=== PATIENT | female | born 1970 | race African-American/Black ===

== ENCOUNTER 2024-12-14 20:22 | Emergency (ER) | payer MEDICAID, OTHER ==
[~2024-12-14] VITALS: Ht 157.5 cm; Wt 77.3 kg
[2024-12-14 20:28] VITALS: TEMP 98.9
[2024-12-14 20:40] LABS: COVID AG,FIA SOURCE NASAL SWAB
[2024-12-14 21:05] LABS: SARS-COV2 (COVID) ANTIGEN,FIA Negative (Negative)
[2024-12-14 21:07] LABS: INFLUENZA TYPE A NEGATIVE FOR TYPE A (NEGATIVE); INFLUENZA TYPE B NEGATIVE FOR TYPE B (NEGATIVE)
[2024-12-15 00:45] VITALS: BP 152/78; PULSE 101; RESP 20; O2SAT 98
[2024-12-15] MEDS: AZITHROMYCIN 500 MG TABLET PO ONE (01:22)
[2024-12-15] MEDS ORDERED: AZIT-164 PO (01:23)
== END 2024-12-15 01:52 | disposition home or self-care (01) ==
LOC: EMS 20:22
DX: J18.9 Pneumonia, unspecified organism (principal); E78.00 Pure hypercholesterolemia, unspecified; Z20.822 Contact with and (suspected) exposure to COVID-19
CPT/HCPCS: 99284; 71045; 87426; 87804; J0456